=== PATIENT | female | born 1990 | race African-American/Black ===

== ENCOUNTER 2022-01-18 11:46 | Emergency (ER) | payer OTHER ==
[2022-01-18 11:55] VITALS: BP 145/86; PULSE 99; RESP 18; TEMP 99.1; BMI 26.3
[2022-01-18] MEDS ORDERED: ACETAMINOPHEN 500 MG TABLET (FP) PO ONE (12:31)
[2022-01-18] MEDS ORDERED: ACETAMINOPHEN 500 MG TABLET (FP) ONE (12:36)
== END 2022-01-18 13:50 | disposition home or self-care (01) ==
LOC: FER 11:46
DX: S93.402A Sprain of unspecified ligament of left ankle, initial encounter (principal); V00.121A Fall from non-in-line roller-skates, initial encounter
CPT/HCPCS: 73610-TC-LT-FY; 99283-25

== ENCOUNTER 2023-06-24 18:51 | Emergency (ER) | payer OTHER ==
[2023-06-24 18:57] VITALS: BP 143/75; PULSE 89; RESP 18; TEMP 98.3; BMI 31.1
[2023-06-24 20:03] LABS: BASO % 0.9 % (0-2.0); EOS % 0.5 % (0-4.5); HEMATOCRIT 39.2 % (32.4-45.2); LYMPH % 30.1 % (8-40); MCH 29.2 pg (25.7-33.7); MCHC 33.1 g/dl (32.0-36.0); MEAN CELL VOLUME 88.3 fl (80-96); MEAN PLT VOLUME 8.1 fl (7.5-11.1); MONO % 5.7 % (3.8-10.2); NEUT % 62.8 % (42.8-82.8); PLATELET COUNT 309 10^3/uL (134-434); RBC 4.44 M/mm3 (3.60-5.2); WHITE BLOOD COUNT 5.5 K/mm3 (4.0-10.0)
[2023-06-24 20:27] LABS: CHLORIDE 109 mmol/L (98-107); POTASSIUM 3.9 mmol/L (3.5-5.1); SODIUM 137 mmol/L (136-145)
[2023-06-24 20:32] LABS: CALCIUM 9.5 mg/dL (8.5-10.1)
[2023-06-24 20:33] LABS: ALBUMIN 3.8 g/dl (3.4-5.0); ANION GAP 2 mmol/L (4-13); BLOOD UREA NITROGEN 15.4 mg/dL (7-18); CO2 26 mmol/L (21-32); GLUCOSE,RANDOM 88 mg/dL (74-106)
[2023-06-24 20:36] LABS: SGOT/AST 24 U/L (15-37); SGPT/ALT 27 U/L (13-61)
[2023-06-24 20:37] LABS: BILIRUBIN,TOTAL 0.4 mg/dL (0.2-1); TOT PROT 7.8 g/dl (6.4-8.2)
[2023-06-24 20:38] LABS: ALK PHOS 65 U/L (45-117)
== END 2023-06-24 21:16 | disposition home or self-care (01) ==
LOC: JER 18:51
DX: N93.9 Abnormal uterine and vaginal bleeding, unspecified (principal); R10.30 Lower abdominal pain, unspecified
CPT/HCPCS: 36415; 76817-TC; 80053; 84702; 85025; 86850; 86870; 86900; 86901; 99284-25